=== PATIENT | male | born 1985 | race American Indian/Alaskan Native ===

== ENCOUNTER 2017-01-25 09:14 | Emergency (ER) | payer SELFPAY ==
[2017-01-25] MEDS ORDERED: PERCOCET 5/325 PO ONE (14:28)
[2017-01-25] MEDS ORDERED: XYLOCAINE 2% INFILTRATI ONE (14:56)
--- NOTE | 2017-01-25 15:33 | Emergency Department Report ---
- General Chief complaint: Skin/Abscess/Foreign Body Stated complaint: BOIL ON BUTTOCKS Time Seen by Provider: 01/25/17 13:21 Source: patient Mode of arrival: Ambulatory Limitations: No Limitations - Related Data Previous Rx's Medication Instructions Recorded Last Taken Type Acetaminophen/Codeine [Tylenol 1 tab PO Q6H PRN #15 tab 01/25/17 Unknown Rx /Codeine # 3 tab] Clindamycin [Clindamycin CAP] 300 mg PO Q6H #40 capsule 01/25/17 Unknown Rx Ibuprofen [Motrin 800 MG tab] 800 mg PO Q8HR PRN #30 tablet 01/25/17 Unknown Rx Allergies Allergy/AdvReac Type Severity Reaction Status Date / Time No Known Allergies Allergy Verified 01/25/17 09:26 Abscess Boil HPI - HPI Chief Complaint: Skin/Abscess/Foreign Body Stated Complaint: BOIL ON BUTTOCKS Time Seen by Provider: 01/25/17 13:21 Duration: 3 Days Location: Perianal Severity: Moderate History: Yes Pain, Yes Previous History, No Fever, No Purulent Drainage, No Numbness, No Foreign Body, No Insect Bite HPI: Patient is a 31 year old male who presents due to abscess in the left buttock but 3 days. Patient denies any fever or chills. Patient denies any nausea, vomiting or diarrhea. Patient states that he has had prior similar episodes in the past. Patient denies any history of diabetes. Home Medications: Previous Rx's Medication Instructions Recorded Last Taken Type Acetaminophen/Codeine [Tylenol 1 tab PO Q6H PRN #15 tab 01/25/17 Unknown Rx /Codeine # 3 tab] Clindamycin [Clindamycin CAP] 300 mg PO Q6H #40 capsule 01/25/17 Unknown Rx Ibuprofen [Motrin 800 MG tab] 800 mg PO Q8HR PRN #30 tablet 01/25/17 Unknown Rx Allergies/Adverse Reactions: Allergies Allergy/AdvReac Type Severity Reaction Status Date / Time No Known Allergies Allergy Verified 01/25/17 09:26 ED Review of Systems ROS: Stated complaint: BOIL ON BUTTOCKS Other details as noted in HPI Comment: All other systems reviewed and negative Constitutional: no symptoms reported. denies: chills, diaphoresis, fever, malaise, weakness Eyes: denies: eye pain, eye discharge, vision change Gastrointestinal: denies: abdominal pain, nausea, vomiting, diarrhea, constipation, hematemesis, melena, hematochezia Genitourinary: other (perianal abscess) Skin: other (perianal abscess) ED Past Medical Hx - Past Medical History Previous Medical History?: No - Surgical History Past Surgical History?: No - Social History Smoking Status: Current Every Day Smoker Substance Use Type: Alcohol - Medications Home Medications: Home Medications Medication Instructions Recorded Confirmed Last Taken Type Acetaminophen/Codeine [Tylenol 1 tab PO Q6H PRN #15 tab 01/25/17 Unknown Rx /Codeine # 3 tab] Clindamycin [Clindamycin CAP] 300 mg PO Q6H #40 capsule 01/25/17 Unknown Rx Ibuprofen [Motrin 800 MG tab] 800 mg PO Q8HR PRN #30 tablet 01/25/17 Unknown Rx ED Physical Exam - General Limitations: No Limitations General appearance: alert, in no apparent distress - Head Head exam: Present: atraumatic, normocephalic - Extremities Exam Extremities exam: Present: normal inspection, full ROM - Back Exam Back exam: Present: normal inspection, full ROM. Absent: tenderness - Neurological Exam Neurological exam: Present: alert, oriented X3, normal gait - Psychiatric Psychiatric exam: Present: normal affect, normal mood - Skin Skin exam: Present: other (patient had 4 x 4 cm area of fluctuation on the left perianal area. ) ED Course Vital Signs 01/25/17 01/25/17 09:23 15:27 Temperature 97.4 F L Pulse Rate 78 Respiratory 18 18 Rate Blood Pressure 150/95 O2 Sat by Pulse 100 Oximetry - I & D Left Buttocks Site: left perianal area Blade Size: 11 I & D Procedure: betadine prep Progress: The area was prepped with Betadine, 2% lidocaine was used to anesthetize the area, 11 blade was used to make an incision, copious purulent fluid was drained from the incision. The incision was loculated, it was irrigated with 10 mL of normal saline. Iodoform Packing was inserted, pressure dressing was applied. Patient was told to return to the ER in 2-3 days for packing removal and abscess check. ED Medical Decision Making - Medical Decision Making Patient was in no acute distress, patient had area of fluctuation on the left perianal area. Incision and drainage was performed. Packing was inserted. Pressure dressing was applied. Patient was told to return to the ER in 2-3 days for packing removal and abscess recheck. Patient was discharged with prescription for clindamycin. - Differential Diagnosis perianal abscess, perirectal abscess, cellulitis, perianal fistula Critical care attestation.: If time is entered above; I have spent that time in minutes in the direct care of this critically ill patient, excluding procedure time. ED Disposition Clinical Impression: Perianal abscess Disposition: TO HOME OR SELFCARE Is pt being admited?: No Does the pt Need Aspirin: No Condition: Good Instructions: Anorectal Abscess and Anal Fistula (ED) Additional Instructions: Take clindamycin 300 mg every 6 hours for 10 days. Take Tylenol with codeine one tablet every 6 hours as needed for severe pain. Take ibuprofen 800 mg every 8 hours as needed for moderate pain. You can clean and change the dressing daily, do not pull the packing. you can apply warm dressing. Return to the ER in 3 days for packing removal and abscess check. Prescriptions: Acetaminophen/Codeine [Tylenol /Codeine # 3 tab] 1 tab PO Q6H PRN #15 tab PRN Reason: Pain Clindamycin [Clindamycin CAP] 300 mg PO Q6H #40 capsule Ibuprofen [Motrin 800 MG tab] 800 mg PO Q8HR PRN #30 tablet PRN Reason: Pain Referrals: PRIMARY CARE, [Primary Care Provider] - 3-5 Days Time of Disposition: 15:32
[2017-01-25 15:52] VITALS: BP 137/90
== END 2017-01-25 15:52 | disposition home or self-care (01) ==
LOC: ED 09:14
DX: L02.31 Cutaneous abscess of buttock (principal); F17.210 Nicotine dependence, cigarettes, uncomplicated
CPT/HCPCS: 99282